=== PATIENT | female | born 1995 | race Hispanic/Latino ===

== ENCOUNTER 2021-12-01 20:47 | Emergency (ER) | payer OTHER, SELFPAY ==
[2021-12-01 20:49] VITALS: BP 134/88; PULSE 94; RESP 17; TEMP 36.4; O2SAT 96; BMI 35.0
--- NOTE | 2021-12-01 21:22 | DI.US.S_ITS ---
PROCEDURE: US OB >= 14 WEEKS FETUS INDICATIONS: leakage of fluid reports 17 weeks OUTSIDE/PRIOR DATING DATA: Last menstrual period (LMP): Unknown TECHNIQUE: Real-time scanning was performed of the fetus, with image documentation and biometric measurements. COMPARISON: None. FINDINGS: General: A single intrauterine gestation is present. Amniotic fluid index: 2.1 cm, normal range is 5-24 cm. Single deepest vertical pocket is 0.8 cm. heart rate: No heart motion visualized. Maternal cervical canal: Not imaged. biometrics: Biparietal diameter: 3.3 cm, 16 weeks 3 days Head circumference: 13.1 cm, 16 weeks 5 days Abdominal circumference: 12.0 cm, 17 weeks 5 days Femur length: 2.1 cm, 16 weeks 2 days Clinically estimated gestational age: Unknown. Composite gestational age from present scan: 16 weeks 6 days IMPRESSION: 1. Single intrauterine with no heart motion identified consistent with demise. 2. Abnormal decreased CATHIE consistent with oligohydramnios. We strive to produce accurate, complete, and clear reports of imaging services. To assist us in improving patient care, this report was composed using standard report templates and voice recognition software. Therefore, it may contain abnormal punctuation, insertions and/or omissions. Occasional wrong-word or sound-alike substitutions may occur. Though we review the report and make efforts to correct it, we do recommend that the report be read carefully in proper context to recognize any text inaccuracies. Dictated by: Francisco J Mcelroy M.D. on 12/02/2021 at 0:46 Approved by: Francisco J Mcelroy M.D. on 12/02/2021 at 0:50
[2021-12-01 21:35] LABS: Add Manual Diff / Slide Review NO; Basophils Absolute Auto 100 /uL (0-100); Basophils Percent Auto 0.7 % (0-2); Eosinophils Absolute Auto 100 /uL (0-450); Eosinophils Percent Auto 0.8 % (2-4); Hematocrit 37.4 % (36-46); Lymphocytes Absolute Auto 2100 /uL (1100-4500); Mean Corpuscular HGB Conc 34.8 % (30-36); Mean Corpuscular Hemoglobin 29.3 PG (26-34); Mean Corpuscular Volume 84.3 fL (80-100); Monocytes Absolute Auto 400 /uL (0-900); Monocytes Percent Auto 4.8 % (3-14); Neutrophils Absolute Auto 5100 /uL (1500-7000); Neutrophils Percent Auto 66.7 % (50-75); Platelet Count 194 X10^3/uL (150-400); Red Blood Cell Count 4.44 X10^6/uL (4.0-5.2); Red Cell Distribution Width 14.6 % (11.6-14.8); White Blood Cell Count 7.7 X10^3/uL (4.5-11.0)
--- NOTE | 2021-12-01 21:36 | PC.NURSE ---
I spoke to the person on-call for [facility], who clarified that the pt did receive misoprostol at the clinic today in preparation for a D&C, but because the patient did not have a ride home, they would not do sedation. The clinic encouraged the pt to stay nearby in [place], but she declined. The pt is meant to return to clinic at 0800. I received a call from Dr. Schrader, clinic provider community resource consultant, who advised that if pt is not in labor, she should go home and return to the clinic as planned. Dr Landon made aware of above.
[2021-12-01 21:53] LABS: Alanine Aminotransferase 13 IU/L (<35); Albumin 4.1 g/dL (3.5-5.0); Albumin Globulin Ratio 1.4 (1.0-2.8); Alkaline Phosphatase 44 U/L (38-126); Aspartate Aminotransferase 17 IU/L (14-36); BUN Creatinine Ratio 11.1 (6-22); Bilirubin Total 0.3 mg/dL (0.2-1.3); Blood Urea Nitrogen 4 mg/dL (7-17); Calcium 8.7 mg/dL (8.4-10.2); Carbon Dioxide 19 mmol/L (22-32); Chloride 106 mmol/L (98-107); Estimated Glomerular Filt Rate > 60 mL/min (>60); Glucose 150 mg/dL (70-100); HEMOLYSIS < 15 (0-50); Potassium 3.4 mmol/L (3.4-5.1); Sodium 137 mmol/L (137-145); Total Protein 7.1 g/dL (6.3-8.2)
--- NOTE | 2021-12-01 21:59 | ED.PREGNANCY ---
HPI - General Chief complaint: OB/Uterine Contractions Stated complaint: water broke s/p starting Time Seen by Provider: 12/01/21 20:49 Source: patient Mode of arrival: Ambulatory Limitations: no limitations History of Present Illness HPI Narrative: 26-year-old female at 17 weeks presents for evaluation of a small amount of leakage of clear fluid just prior to arrival. She states that this was unplanned and occurred despite the use of an IUD, she had been seen and evaluated had a visit at the [facility] in [place] earlier today. She was given Misoprostol in preparation for a D&E tomorrow. She was driving home when she felt the leakage of a small amount of fluid. She denies any ongoing leakage or bleeding. She has had no cramping or labor pains whatsoever. She is completely asymptomatic on her arrival. She denies any dizziness, weakness or lightheadedness. She has had no fever or chills. Related Data Allergies Allergy/AdvReac Type Severity Reaction Status Date / Time No Known Drug Allergies Allergy Verified 12/01/21 21:01 Review of Systems Review of Systems Narrative: GENERAL: Denies chills, fatigue, malaise, fever, sweats. HEENT: Denies sinus pain, ear pain, sore throat, difficulty swallowing, dizziness. RESPIRATORY: Denies dyspnea, cough, wheezing, hemoptysis, sputum. CARDIOVASCULAR: Denies chest pain, palpitations, orthopnea, edema, GASTROINTESTINAL: Denies nausea, vomiting, abdominal pain, diarrhea, constipation, melena. : See HPI MUSCULOSKELETAL: denies weakness, joint pain, or bony pain SKIN: Denies rash, skin lesions, or other NEUROLOGIC: Denies weakness, headache, numbness, change in speech, confusion, seizures, incoordination. PSYCHIATRIC: No concerning psychosocial issues. 12 point review of systems is negative except for those stated above Exam Narrative Exam Narrative: GEN: AOx3 and in no obvious distress EYES: Pupils are equal, round, and reactive to light and accommodation. Extraoccular muscles are intact bilaterally. There is no subconjunctival hemorrhage or exudate. CHEST: Lungs are clear to auscultation bilaterally and free of wheezes, rales, or rhonchi. Heart rate is regular rhythm, there are no murmurs, clicks, rubs, or gallops. There is no chest wall tenderness. ABD: Abdomen is soft and nontender. There is no guarding or rebound. Bowel sounds are normal in all 4 quadrants. There is no mass or organomegaly. EXT: Full painless ROM of all extremities with no loss of sensation or strength. SKIN: Warm, pink, and dry. No erythema or rash Initial Vital Signs Initial Vital Signs: Vital Signs Temperature 97.5 F L 12/01/21 20:49 Pulse Rate 94 H 12/01/21 20:49 Respiratory Rate 17 12/01/21 20:49 Blood Pressure 134/88 12/01/21 20:49 Pulse Oximetry 96 12/01/21 20:49 Oxygen Delivery Method 12/01/21 20:49 Course Orders Ordered: ED Orders 12/01/21 21:20 Complete Blood Count AUTO DIFF Stat Comprehensive Metabolic Panel Stat HCG Quantitative /Beta subunit Stat Type and Screen Stat 12/01/21 21:22 OB limited Stat Consultations Consultation #1: discussed with economic historian OB at [facility]. Given lack of bleeding, cramping, labor pains she recommends patient go home and follow up in the morning as planned, with appropriate return precautions Vital Signs Vital signs: Vital Signs - 8 hr 12/01/21 22:05 Temperature 97.9 F Pulse Rate 92 H Respiratory Rate 18 Blood Pressure 122/68 Pulse Oximetry 98 Oxygen Delivery Method Room Air MDM - OB/Uterine Contractions Lab Data Result diagrams: 12/01/21 21:20 12/01/21 21:20 Labs: Lab Results 12/01/21 12/01/21 12/01/21 Range/Units 21:20 21:20 21:20 WBC 7.7 (4.5-11.0) X10^3/uL RBC 4.44 (4.0-5.2) X10^6/uL Hgb 13.0 (12.0-16.0) g/dL Hct 37.4 (36-46) % MCV 84.3 (80-100) fL MCH 29.3 (26-34) PG MCHC 34.8 (30-36) % RDW 14.6 (11.6-14.8) % Plt Count 194 (150-400) X10^3/uL Neut % (Auto) 66.7 (50-75) % Lymph % (Auto) 27.0 (25-40) % Campbell % (Auto) 4.8 (3-14) % Eos % (Auto) 0.8 L (2-4) % Baso % (Auto) 0.7 (0-2) % Neut # (Auto) 5100 (1985-4693) /uL Lymph # (Auto) 2100 (3862-4323) /uL Campbell # (Auto) 400 (0-900) /uL Eos # (Auto) 100 (0-450) /uL Baso # (Auto) 100 (0-100) /uL Sodium (137-145) mmol/L Potassium (3.4-5.1) mmol/L Chloride (98-107) mmol/L Carbon Dioxide (22-32) mmol/L BUN (7-17) mg/dL Creatinine (0.52-1.04) mg/dL Estimated GFR (>60) mL/min BUN/Creatinine Ratio (6-22) Glucose (70-100) mg/dL Calcium (8.4-10.2) mg/dL Total Bilirubin (0.2-1.3) mg/dL AST (14-36) IU/L ALT (<35) IU/L Alkaline Phosphatase (38-126) U/L Total Protein (6.3-8.2) g/dL Albumin (3.5-5.0) g/dL Globulin (1.7-4.1) g/dL Albumin/Globulin Ratio (1.0-2.8) HCG, Quant 3026.9 mIU/mL Blood Type A Positive Antibody Screen Negative 12/01/21 Range/Units 21:20 WBC (4.5-11.0) X10^3/uL RBC (4.0-5.2) X10^6/uL Hgb (12.0-16.0) g/dL Hct (36-46) % MCV (80-100) fL MCH (26-34) PG MCHC (30-36) % RDW (11.6-14.8) % Plt Count (150-400) X10^3/uL Neut % (Auto) (50-75) % Lymph % (Auto) (25-40) % Campbell % (Auto) (3-14) % Eos % (Auto) (2-4) % Baso % (Auto) (0-2) % Neut # (Auto) (9681-5640) /uL Lymph # (Auto) (6360-4162) /uL Campbell # (Auto) (0-900) /uL Eos # (Auto) (0-450) /uL Baso # (Auto) (0-100) /uL Sodium 137 (137-145) mmol/L Potassium 3.4 (3.4-5.1) mmol/L Chloride 106 (98-107) mmol/L Carbon Dioxide 19 L (22-32) mmol/L BUN 4 L (7-17) mg/dL Creatinine 0.36 L (0.52-1.04) mg/dL Estimated GFR > 60 (>60) mL/min BUN/Creatinine Ratio 11.1 (6-22) Glucose 150 H (70-100) mg/dL Calcium 8.7 (8.4-10.2) mg/dL Total Bilirubin 0.3 (0.2-1.3) mg/dL AST 17 (14-36) IU/L ALT 13 (<35) IU/L Alkaline Phosphatase 44 (38-126) U/L Total Protein 7.1 (6.3-8.2) g/dL Albumin 4.1 (3.5-5.0) g/dL Globulin 3.0 (1.7-4.1) g/dL Albumin/Globulin Ratio 1.4 (1.0-2.8) HCG, Quant mIU/mL Blood Type Antibody Screen Imaging Data US - OB: Radiologist's Impression: [place] [address] Ultrasound Report Signed Patient: Brandon Mai MR#: [id number] : 1995 Acct:[id number] Age/Sex: 26 / F Date of Service: 12/01/21 Loc: ED Accession Number: [id number] ?? Procedure: US OB limited Ordering Provider: Leif Landon D.O. PROCEDURE:? US OB >= 14 WEEKS FETUS ? INDICATIONS:? leakage of fluid reports 17 weeks ? OUTSIDE/PRIOR DATING DATA:? Last menstrual period (LMP):? Unknown ? TECHNIQUE:? Real-time scanning was performed of the fetus, with image documentation and biometric measurements.? ? COMPARISON:? None. ? ? FINDINGS:? ? General:? A single intrauterine gestation is present.? Amniotic fluid index:? 2.1 cm, normal range is 5-24 cm.? Single deepest vertical pocket is 0.8 cm. heart rate:? No heart motion visualized.? Maternal cervical canal:? Not imaged. ? biometrics:? Biparietal diameter:? 3.3 cm, 16 weeks 3 days Head circumference:? 13.1 cm, 16 weeks 5 days Abdominal circumference:? 12.0 cm, 17 weeks 5 days Femur length:? 2.1 cm, 16 weeks 2 days Clinically estimated gestational age:? Unknown. Composite gestational age from present scan:? 16 weeks 6 days ? IMPRESSION:? ? 1. Single intrauterine with no heart motion identified consistent with demise. ? 2. Abnormal decreased CATHIE consistent with oligohydramnios.? ? We strive to produce accurate, complete, and clear reports of imaging services. To assist us in improving patient care, this report was composed using standard report templates and voice recognition software. Therefore, it may contain abnormal punctuation, insertions and/or omissions. Occasional wrong-word or sound-alike substitutions may occur. Though we review the report and make efforts to correct it, we do recommend that the report be read carefully in proper context to recognize any text inaccuracies. ? ? Dictated by: Francisco J Mcelroy M.D. on 12/02/2021 at 0:46 ? ? Approved by: Francisco J Mcelroy M.D. on 12/02/2021 at 0:50 ? Discharge Plan Departure Patient Disposition: Home Clinical Impression: in second trimester Instructions: DI for Therapeutic : Medical Activity Restrictions/Additional Instructions: *You have been diagnosed with [planned chemical in process] *What to do: *Please continue to take your regular medications as directed. *Please follow up with your OB Clinic tomorrow morning as planned *Return to Emergency Department if you should have any new, worsening or concerning symptoms, such as [labor pain, other significant pain, heavy bleed, fever or other concerning symptoms Visit Report Forms: Patient Portal/API
[2021-12-01 22:05] VITALS: BP 122/68; PULSE 92; RESP 18; TEMP 36.6; O2SAT 98
[2021-12-01 22:09] LABS: HCG Quantitative /Beta subunit 3026.9 mIU/mL
== END 2021-12-01 22:08 | disposition home or self-care (01) ==
PROVIDERS: Emergency Provider Emergency Medicine
DX: O07.4 Failed attempted termination of pregnancy without complication (principal)
CPT/HCPCS: 36415; 76815; 80053; 84702; 85025; 86850; 86900; 86901; 99283; 99284

== ENCOUNTER → 2022-08-07 14:42 | Outpatient (CLI) | payer OTHER, SELFPAY ==
--- NOTE | 2022-08-07 14:43 | DI.MRI.S_ITS ---
PROCEDURE: MR LUMBAR SPINE WO CON INDICATIONS: Low back pain, unspecified TECHNIQUE: Noncontrast sagittal T1 spin echo and T2 fast echo, sagittal STIR, and T2 fast spin echo through the lumbar spine. In cases with scoliosis, additional coronal T2 fast spin echo may be performed. COMPARISON: [facility], CR, XR LUMBAR SPINE WITH OBLIQUES PLUS FLEXION EXTENSION, 03/19/2022, 15:05. FINDINGS: Image quality: Excellent. Alignment and Curvature: There is normal bony alignment. Bone Marrow: Marrow is of normal overall signal. No acute vertebral body compression fractures. Spinal Cord: Conus medullaris terminates at the L1-L2 level. Visualized cord demonstrates normal signal and size. Paraspinous Soft Tissues: No paravertebral masses. T12-L1: Normal appearance. L1-L2: Normal appearance. L2-L3: Facet hypertrophy. No canal stenosis or foraminal stenosis. L3-L4: Mild broad-based central posterior disc protrusion. Facet hypertrophy. No canal stenosis or foraminal stenosis. L4-L5: Right paracentral annulus tear plus broad-based right paracentral disc protrusion impinging on the right L5 nerve root in the right lateral recess. Facet hypertrophy. Mild right foraminal stenosis. No left foraminal stenosis. L5-S1: Posterior annulus tear plus mild central posterior disc protrusion without canal stenosis. Bilateral facet hypertrophy. No foraminal stenosis. IMPRESSION: 1. At L4-L5, a right paracentral disc protrusion impinges on the right L5 nerve root in the right lateral recess. 2. There are disc protrusions without canal stenosis at L3-L4 and L5-S1. 3. Multilevel lower lumbar facet hypertrophy. Dictated by: Dragan Longoria M.D. on 08/09/2022 at 8:08 Approved by: Dragan Longoria M.D. on 08/09/2022 at 8:12
== END ==
PROVIDERS: PCP Student in an Organized Health Care Education/Training Program; Referring Provider Student in an Organized Health Care Education/Training Program; Visit Provider Student in an Organized Health Care Education/Training Program
DX: M51.26 Other intervertebral disc displacement, lumbar region (principal); M51.27 Other intervertebral disc displacement, lumbosacral region; M47.816 Spondylosis without myelopathy or radiculopathy, lumbar region; M47.817 Spondylosis without myelopathy or radiculopathy, lumbosacral region
CPT/HCPCS: 72148